=== PATIENT | male | born 1955 | race Caucasian/White ===

== ENCOUNTER 2019-05-29 06:09 | Outpatient (CLI) | payer OTHER | END 2019-05-29 06:10 | disposition short-term general hospital (02) | LOC: EMS 06:09 | PROVIDERS: ATTEND Surgery | DX: R07.9 Chest pain, unspecified (principal) | CPT/HCPCS: A0425; A0427 ==

== ENCOUNTER 2019-06-01 05:40 | Outpatient (CLI) | payer OTHER | END 2019-06-01 05:41 | disposition short-term general hospital (02) | LOC: EMS 05:40 | PROVIDERS: ATTEND Surgery | DX: R41.0 Disorientation, unspecified (principal); R07.9 Chest pain, unspecified | CPT/HCPCS: A0425; A0427 ==

== ENCOUNTER 2019-06-04 02:39 | Outpatient (CLI) | payer OTHER | END 2019-06-04 02:40 | disposition short-term general hospital (02) | LOC: EMS 02:39 | PROVIDERS: ATTEND Surgery | DX: R07.9 Chest pain, unspecified (principal) | CPT/HCPCS: A0425; A0427 ==

== ENCOUNTER 2019-06-10 00:58 | Outpatient (CLI) | payer OTHER | END 2019-06-10 00:59 | disposition short-term general hospital (02) | LOC: EMS 00:58 | PROVIDERS: ATTEND Surgery | DX: R53.1 Weakness (principal); R42 Dizziness and giddiness | CPT/HCPCS: A0425; A0427 ==

== ENCOUNTER 2019-06-26 05:59 | Outpatient (CLI) | payer OTHER | END 2019-06-26 06:00 | disposition short-term general hospital (02) | LOC: EMS 05:59 | PROVIDERS: ATTEND Surgery | DX: R07.89 Other chest pain (principal); R06.02 Shortness of breath | CPT/HCPCS: A0425; A0427 ==

== ENCOUNTER 2019-09-08 22:31 | Outpatient (CLI) | payer OTHER | END 2019-09-08 22:32 | disposition critical access hospital (66) | LOC: EMS 22:31 | PROVIDERS: ATTEND Surgery | DX: R55 Syncope and collapse (principal); R51 Headache | CPT/HCPCS: A0425; A0427 ==

== ENCOUNTER 2019-09-08 22:57 | Emergency (ER) | payer OTHER ==
--- NOTE | 2019-09-08 23:04 | ED Physician Documentation ---
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 He noticed it today when he got up and was walking across the room. He states he felt his legs weak and mostly on the left without the arms being weak per se. He felt lightheaded. Family members apparently where there and helped him down. EMS reports they did not say he had complete loss of consciousness. He is having a headache but did not have apparent injury to the head. He denied headache preceding the episode. He is still having some headache and a feeling of lightheadedness. He denies vertigo. He denies any feeling of weakness in his arms or legs right now.). No: Headache, Chest pain, Abdominal pain, Nausea / vomiting Associated symptoms: Headache (after the event). No: Seizure, Incontinant of urine, Chest pain, Nausea / vomiting, Abdominal pain Contributing factors: Just stood up. No: Recent med change (He denies any recent medication changes. Has lost changes were with a stent placement for chest pain in June 15, 2019 done at [facility]. He states he has been on the same medications though did have an ER visit in June to schedule as well. The records do not reflect any medication change at that time.), Decreased PO intake Injury occurred: No: Fell, Head injury Similar symptoms before: No diagnosis (He states he has been having postural lightheadedness episodically for the last couple of weeks occurring 3 or 4 times a week. Today was the first near syncopal episode.) Recently seen: Not recently seen Review of Systems Constitutional: denies: Fever, Chills Nose: denies: Rhinorrhea / runny nose, Congestion Throat: denies: Sore throat Cardiac: denies: Chest pain / pressure, Palpitations Respiratory: denies: Dyspnea, Cough GI: denies: Abdominal Pain, Nausea, Vomiting, Diarrhea, Bloody / black stool Neurologic: reports: Generalized weakness, Near syncope, Headache (just with the near syncope this evening). denies: Head injury Immunocompromised: denies: Immunocompromised PD PAST MEDICAL HISTORY - Past Medical History Cardiovascular: Hypertension, Coronary artery disease, [place] Respiratory: None Neuro: CVA Endocrine/Autoimmune: Type 2 diabetes GI: None : None - Present Medications Home Medications: Ambulatory Orders Medication Instructions Recorded Confirmed Atorvastatin [Lipitor] 40 mg PO 09/08/19 Bupropion HCl [Bupropion Xl] 150 mg PO 09/09/19 Citalopram [CeleXA] 40 mg PO DAILY 09/09/19 09/09/19 Gabapentin 300 mg PO 09/09/19 Insulin Aspart [Insulin Aspart 100 unit SQ 09/09/19 Flexpen] Insulin Glargine [Lantus Solostar] 0 unit 09/09/19 Levothyroxine [Synthroid] 50 mcg PO QDAC 09/09/19 09/09/19 Lisinopril [Zestril] 2.5 mg PO 09/09/19 Meclizine [Antivert] 25 mg PO Q6H 09/09/19 09/09/19 Metoprolol Tartrate 25 mg PO BID 09/09/19 09/09/19 Omeprazole 20 mg PO 09/09/19 - Allergies Allergies/Adverse Reactions: Allergies Allergy/AdvReac Type Severity Reaction Status Date / Time No Known Drug Allergies Allergy Verified 09/08/19 23:25 PD ED PE NORMAL - Vitals Vital signs reviewed: Yes (BP initially low but improving with IV fluid bolus) - General General: Alert and oriented X 3, No acute distress, Well developed/nourished - HEENT HEENT: Pharynx benign - Neck Neck: Supple, no meningeal sign, No adenopathy - Cardiac Cardiac: RRR, No murmur - Respiratory Respiratory: Clear bilaterally - Abdomen Abdomen: Soft, Non tender, Non distended - Derm Derm: Normal color, Warm and dry - Extremities Extremities: No deformity, No tenderness to palpate, Normal ROM s pain, No edema, No calf tenderness / cord - Neuro Neuro: Alert and oriented X 3, No motor deficit, Normal speech Eye Opening: Spontaneous Motor: Obeys Commands Verbal: Oriented GCS Score: 15 Results - Vitals Vitals: Vital Signs - 24 hr 09/08/19 09/09/19 09/09/19 23:03 01:56 02:00 Temperature 36.7 C Heart Rate 71 62 63 Heart Rate [ Sitting] Heart Rate [ Standing] Heart Rate [ Supine] Respiratory 18 15 18 Rate Blood Pressure 99/63 106/62 116/64 Blood Pressure [Sitting] Blood Pressure [Standing] Blood Pressure [Supine] O2 Saturation 95 93 94 09/09/19 09/09/19 03:30 04:05 Temperature Heart Rate 70 Heart Rate [ 70 Sitting] Heart Rate [ 70 Standing] Heart Rate [ 69 Supine] Respiratory 16 Rate Blood Pressure 112/70 Blood Pressure 111/67 [Sitting] Blood Pressure 107/68 [Standing] Blood Pressure 108/57 L [Supine] O2 Saturation 97 Oxygen O2 Source Room air - EKG (time done) 23:01 Rate: Rate (enter#) (67) Rhythm: NSR [place]: Normal Intervals: Normal NE QRS: Normal Ischemia: Normal ST segments. No: ST elevation c/w ischemia, ST depression Compare to prior EKG: Unchanged from prior EKG - Labs Labs: Laboratory Tests 09/09/19 09/09/19 09/09/19 00:47 00:47 00:47 WBC 8.9 RBC 3.97 L Hgb 11.9 L Hct 36.0 L MCV 90.7 MCH 30.0 MCHC 33.1 RDW 14.4 Plt Count 200 MPV 8.4 Neut # (Auto) 5.8 Lymph # (Auto) 2.1 [place] # (Auto) 0.8 Eos # (Auto) 0.1 Baso # (Auto) 0.0 Absolute Nucleated RBC 0.00 Nucleated RBC % 0.0 Sodium 137 Potassium 3.9 Chloride 104 Carbon Dioxide 23 Anion Gap 10.0 BUN 16 Creatinine 1.4 H Estimated GFR (MDRD) 51 L Glucose 102 H Lactic Acid Calcium 8.3 L Magnesium 1.6 L Total Bilirubin 0.8 AST 21 ALT 20 Alkaline Phosphatase 64 Troponin I High Sens 5.9 B-Natriuretic Peptide Total Protein 6.7 Albumin 3.4 Globulin 3.3 Albumin/Globulin Ratio 1.0 Lipase 25 09/09/19 09/09/19 00:47 01:20 WBC RBC Hgb Hct MCV MCH MCHC RDW Plt Count MPV Neut # (Auto) Lymph # (Auto) [place] # (Auto) Eos # (Auto) Baso # (Auto) Absolute Nucleated RBC Nucleated RBC % Sodium Potassium Chloride Carbon Dioxide Anion Gap BUN Creatinine Estimated GFR (MDRD) Glucose Lactic Acid 0.7 Calcium Magnesium Total Bilirubin AST ALT Alkaline Phosphatase Troponin I High Sens B-Natriuretic Peptide 110 H Total Protein Albumin Globulin Albumin/Globulin Ratio Lipase - Rads (name of study) head CT Radiology: Prelim report reviewed (No ICH), See rad report chest xray Radiology: Prelim report reviewed (patchy peripheral airspace disease c/w viral pneumonia in the right clinical setting), See rad report PD MEDICAL DECISION MAKING - ED course Complexity details: reviewed old records (from [facility] from 06/15/19), reviewed results, re-evaluated patient (Blood pressures improved with IV fluids. He remained stable otherwise. Heart rate is consistent on telemetry. He is subsequently feeling okay with standing up and is not orthostatic at this time though his still relatively low on blood pressure. He states his normal is 1 20-1 30. I will have him decrease his medication. He is only on very low-dose of lisinopril and only 25 twice a day of metoprolol. Otherwise his Imdur is 60 mg so we can decrease that to 30 daily. Have him follow-up with his primary care and cardiology this coming week regarding improved symptoms and any other medication adjustments), considered differential (Blood pressure is low without any obvious acute infection or dehydration or change in medicines. We will give some IV fluids and see if that helps. Check for signs of heart dysfunction with BNP or troponin. Chest x-ray to be obtained. He is having some headache subsequent to the event and does take Plavix so we will get a CT scan to ensure no bleeding from inapparent injury with the fainting. Check labs for metabolic and blood count as well), d/w patient Departure - Departure Disposition: 01 Home, Self Care Clinical Impression: Transient hypotension, Near syncope Headache Qualifiers: Headache type: unspecified Headache chronicity pattern: acute headache Intractability: not intractable Qualified Code(s): R51 - Headache Condition: Stable Record reviewed to determine appropriate education?: Yes Instructions: ED Near Syncope Unkn Comments: Your blood tests and EKG x-ray and CT of the head are normal in appearance. Your blood pressure was low initially and improved with some fluids. There is no signs of infectious cause or other metabolic cause at this time. I presume its a combination of hydration and medication. At this point make sure you stay well-hydrated and I would suggest decreasing your Imdur from 60 mg a day to 30 mg a day. Continue your metoprolol and lisinopril. These are at low doses already. Continue your other usual medicines. Contact your primary care and multimedia educational specialist this coming week on Wednesday and discuss the medication changes we did and see if they want to change in any other way. Discharge Date/Time: 09/09/19 04:50
[2019-09-08] MEDS ORDERED: MORPHINE 2 MG/ML CARPUJECT IVP STA (23:55)
[2019-09-08] MEDS ORDERED: SODIUM CHLORIDE 0.9% 1,000 ML IV STA (23:56)
--- NOTE | 2019-09-09 00:42 | CT Report ---
Reason: headache and near syncope Procedure Date: 09/09/2019 Accession Number: [id number] / [id number] Procedure: CT - HEAD WO CPT Code: Final Report FULL RESULT: EXAM: CT HEAD EXAM DATE: 09/09/2019 12:17 AM. CLINICAL HISTORY: Headache and near syncope. COMPARISON: None. TECHNIQUE: Multiaxial CT images were obtained from the foramen magnum to the vertex. Reformats: Sagittal and coronal. IV contrast: None. In accordance with CT protocol optimization, one or more of the following dose reduction techniques were utilized for this exam: automated exposure control, adjustment of mA and/or KV based on patient size, or use of iterative reconstructive technique. FINDINGS: Parenchyma: No intraparenchymal hemorrhage. No evidence of mass, midline shift, or CT findings of infarction. Reich-white differentiation is distinct. Extraaxial Spaces: Normal for age. No subdural or epidural collections identified. Ventricles: Normal in size and position. Sinuses and Orbits: Imaged paranasal sinuses, orbits, and mastoids show no significant abnormality. Bones: No evidence of fracture or calvarial defect. Other: None. IMPRESSION: Normal head CT. RADIA
--- NOTE | 2019-09-09 00:46 | XRAY Report ---
Reason: near syncope Procedure Date: 09/09/2019 Accession Number: [id number] / [id number] Procedure: XR - Chest 1 View X-Ray CPT Code: 24262 Final Report FULL RESULT: EXAM: CHEST RADIOGRAPHY EXAM DATE: 09/09/2019 12:22 AM. CLINICAL HISTORY: Near syncope. COMPARISON: None. TECHNIQUE: 1 view. FINDINGS: Lungs/Pleura: Patchy peripheral infiltrates, suggestive of viral or atypical infection in the appropriate clinical scenario. No effusion or pneumothorax. Mediastinum: Within exam limitations, the cardiomediastinal contour is normal. Other: None. IMPRESSION: Patchy peripheral airspace disease, suggestive of viral or atypical infectious process in the appropriate clinical scenario. RADIA
[2019-09-09 00:57] LABS: BASOPHILS % (AUTO) 0.1 %; EOSINOPHILS # (AUTO) 0.1 10^3/uL (0.0-0.7); EOSINOPHILS % (AUTO) 1.5 %; HGB - HEMOGLOBIN 11.9 g/dL (14.0-18.0); LYMPHOCYTES # (AUTO) 2.1 10^3/uL (1.5-3.5); LYMPHOCYTES % (AUTO) 23.8 %; MEAN CORPUSCULAR HGB CONC 33.1 g/dL (32.0-36.0); MEAN CORPUSCULAR VOLUME 90.7 fL (80.0-94.0); MEAN PLATELET VOLUME 8.4 fL (7.4-11.4); MONOCYTES # (AUTO) 0.8 10^3/uL (0.0-1.0); MONOCYTES % (AUTO) 8.9 %; NEUTROPHILS # (AUTO) 5.8 10^3/uL (1.5-6.6); NEUTROPHILS % (AUTO) 65.1 %; PLT - PLATELET COUNT 200 10^3/uL (130-450); RED BLOOD COUNT 3.97 10^6/uL (4.70-6.10); RED CELL DISTRIBUTION WIDTH 14.4 % (12.0-15.0); WHITE BLOOD COUNT 8.9 x10^3/uL (4.8-10.8)
[2019-09-09 01:11] LABS: ALBUMIN 3.4 g/dL (3.2-5.5); BILIRUBIN,TOTAL 0.8 mg/dL (0.2-1.0); CALCIUM 8.3 mg/dL (8.5-10.3); CREATININE 1.4 mg/dL (0.6-1.2); MAGNESIUM 1.6 mg/dL (1.7-2.8); TOTAL PROTEIN 6.7 g/dL (6.7-8.2)
[2019-09-09] MEDS ORDERED: KETOROLAC 15 MG/ML VIAL IVP STA (01:11)
[2019-09-09] MEDS ORDERED: ACETAMINOPHEN 1,000 MG/100 ML 100 ML IV ONE (01:11)
[2019-09-09] MEDS ORDERED: SODIUM CHLORIDE 0.9% 1,000 ML IV STA (01:11)
[2019-09-09] MEDS ORDERED: SODIUM CHLORIDE 0.9% 500 ML IV STA (02:41)
[2019-09-09 04:05] VITALS: BP 112/70
== END 2019-09-09 04:50 | disposition home or self-care (01) ==
LOC: EDUNIT# → ED 22:57
DX: I95.9 Hypotension, unspecified (principal); R55 Syncope and collapse; R51 Headache; E11.9 Type 2 diabetes mellitus without complications; Z79.4 Long term (current) use of insulin; I10 Essential (primary) hypertension; Z86.73 Personal history of transient ischemic attack (TIA), and cerebral infarction without residual deficits; Z79.02 Long term (current) use of antithrombotics/antiplatelets
CPT/HCPCS: 36415; 70450; 71045; 80053; 83605; 83690; 83735; 83880; 84484; 85025; 93005; 96361; 96365; 96375; 99284; J0131

== ENCOUNTER 2019-10-17 12:18 | Outpatient (CLI) | payer OTHER | END 2019-10-17 12:19 | disposition short-term general hospital (02) | LOC: EMS 12:18 | PROVIDERS: ATTEND Surgery | DX: R07.9 Chest pain, unspecified (principal); R06.02 Shortness of breath | CPT/HCPCS: A0425; A0427 ==

== ENCOUNTER 2020-01-09 03:13 | Outpatient (CLI) | payer OTHER | END 2020-01-09 03:14 | disposition short-term general hospital (02) | LOC: EMS 03:13 | PROVIDERS: ATTEND Surgery | DX: R07.89 Other chest pain (principal); R11.0 Nausea | CPT/HCPCS: A0425; A0427 ==

== ENCOUNTER 2020-01-10 23:03 | Outpatient (CLI) | payer MEDICARE | END 2020-01-10 23:04 | disposition short-term general hospital (02) | LOC: EMS 23:03 | PROVIDERS: ATTEND Surgery | DX: R07.89 Other chest pain (principal) | CPT/HCPCS: A0425; A0427 ==

== ENCOUNTER → 2020-02-02 | Outpatient (CLI) | payer MEDICARE | END | disposition short-term general hospital (02) | LOC: EMS 23:33 | PROVIDERS: ATTEND Surgery | DX: R51.9 Headache, unspecified (principal); R53.1 Weakness; R55 Syncope and collapse; R11.0 Nausea | CPT/HCPCS: A0425; A0429 ==

== ENCOUNTER 2020-04-19 09:48 | Outpatient (CLI) | payer MEDICARE | END 2020-04-19 09:49 | disposition short-term general hospital (02) | LOC: EMS 09:48 | PROVIDERS: ATTEND Surgery | DX: R07.9 Chest pain, unspecified (principal) | CPT/HCPCS: A0425; A0427 ==

== ENCOUNTER 2020-08-11 23:15 | Outpatient (CLI) | payer OTHER | END 2020-08-11 23:16 | disposition short-term general hospital (02) | LOC: EMS 23:15 | DX: K30 Functional dyspepsia (principal); R11.2 Nausea with vomiting, unspecified; R07.9 Chest pain, unspecified | CPT/HCPCS: A0425; A0427 ==

== ENCOUNTER 2020-09-13 21:03 | Outpatient (CLI) | payer OTHER, MEDICARE | END 2020-09-13 21:04 | disposition short-term general hospital (02) | LOC: EMS 21:03 | DX: R06.00 Dyspnea, unspecified (principal) | CPT/HCPCS: A0425; A0429 ==

== ENCOUNTER 2020-09-24 03:14 | Outpatient (CLI) | payer MEDICARE | END 2020-09-24 03:15 | disposition critical access hospital (66) | LOC: EMS 03:14 | DX: R07.9 Chest pain, unspecified (principal); R06.02 Shortness of breath | CPT/HCPCS: A0425; A0429 ==

== ENCOUNTER 2020-10-21 06:45 | Outpatient (CLI) | payer MEDICARE | END 2020-10-21 06:46 | disposition short-term general hospital (02) | LOC: EMS 06:45 | DX: R10.11 Right upper quadrant pain (principal); R11.2 Nausea with vomiting, unspecified; R06.02 Shortness of breath | CPT/HCPCS: A0425; A0429 ==

== ENCOUNTER 2020-12-27 04:46 | Outpatient (CLI) | payer MEDICARE | END 2020-12-27 04:47 | disposition short-term general hospital (02) | LOC: EMS 04:46 | DX: R42 Dizziness and giddiness (principal); I95.9 Hypotension, unspecified | CPT/HCPCS: A0425; A0429 ==

== ENCOUNTER 2021-02-07 22:20 | Outpatient (CLI) | payer MEDICARE | END 2021-02-07 22:21 | disposition short-term general hospital (02) | LOC: EMS 22:20 | PROVIDERS: ATTEND Emergency Medicine | DX: R40.3 Persistent vegetative state (principal); M25.551 Pain in right hip | CPT/HCPCS: A0425; A0427 ==

== ENCOUNTER 2021-03-07 20:10 | Outpatient (CLI) | payer MEDICARE | END 2021-03-07 20:11 | disposition short-term general hospital (02) | LOC: EMS 20:10 | DX: Z04.3 Encounter for examination and observation following other accident (principal); M54.6 Pain in thoracic spine | CPT/HCPCS: A0425; A0429 ==

== ENCOUNTER 2021-03-19 10:34 | Outpatient (CLI) | payer MEDICARE | END 2021-03-19 10:35 | disposition EMS.NT | LOC: EMS 10:34 | DX: Z03.89 Encounter for observation for other suspected diseases and conditions ruled out (principal) ==

== ENCOUNTER 2021-03-19 15:35 | Outpatient (CLI) | payer OTHER | END 2021-03-19 15:36 | disposition short-term general hospital (02) | LOC: EMS 15:35 | DX: Z04.3 Encounter for examination and observation following other accident (principal); R26.81 Unsteadiness on feet; R07.9 Chest pain, unspecified; R44.3 Hallucinations, unspecified | CPT/HCPCS: A0425; A0427 ==

== ENCOUNTER 2021-04-02 04:13 | Outpatient (CLI) | payer MEDICARE, OTHER | END 2021-04-02 04:14 | disposition EMS.NT | LOC: EMS 04:13 | DX: R26.81 Unsteadiness on feet (principal); R25.1 Tremor, unspecified; Z91.81 History of falling ==

== ENCOUNTER 2021-04-02 13:44 | Outpatient (CLI) | payer MEDICARE | END 2021-04-02 13:45 | disposition critical access hospital (66) | LOC: EMS 13:44 | DX: R53.1 Weakness (principal); R42 Dizziness and giddiness | CPT/HCPCS: A0425; A0429 ==

== ENCOUNTER 2021-04-02 14:09 | Emergency (ER) | payer MEDICARE, OTHER ==
--- NOTE | 2021-04-02 14:13 | ED Physician Documentation ---
PD HPI Fall - Stated complaint Stated Complaint: FALL - History obtained from History obtained from: Patient, EMS - History of Present Illness Mechanism of injury: Lost balance, Other (feeling of weakness in legs.) Fall distance: Standing position Where injury occurred: Home Timing - onset: Today (he states he was in [facility] for 2 weeks due to weakness, balance problems, and tremor. Dx with Leuwe Body Dementia and Parkinsons. He states they tried placement at assisted living but unable. Discharged him to home with walker/home health aides. He states discharged yesterday. falls today.) Injury(ies) location: Other (he denies injuries with falls.). No: Head, Neck, Chest, Abdomen Associated symptoms: Weakness, Other (shakiness/tremors.). No: LOC, AMS, Paresthesias Worsens with: Movement Similar symptoms before: Has not had sx before Review of Systems Constitutional: denies: Fever, Chills Nose: denies: Rhinorrhea / runny nose, Congestion Throat: denies: Sore throat Cardiac: denies: Chest pain / pressure, Palpitations Respiratory: denies: Dyspnea, Cough GI: denies: Abdominal Pain, Nausea, Vomiting, Diarrhea Neurologic: reports: Generalized weakness. denies: Focal weakness, Near syncope, Headache PD PAST MEDICAL HISTORY - Past Medical History Cardiovascular: Hypertension, Coronary artery disease, [place] Respiratory: None Neuro: Dementia, CVA, Parkinson's Endocrine/Autoimmune: Type 2 diabetes GI: None : None - Present Medications Home Medications: Ambulatory Orders Medication Instructions Recorded Confirmed Atorvastatin [Lipitor] 40 mg PO 09/08/19 Citalopram [CeleXA] 40 mg PO DAILY 09/09/19 09/09/19 Gabapentin 300 mg PO 09/09/19 Insulin Aspart [Insulin Aspart 100 unit SQ 09/09/19 Flexpen] Insulin Glargine [Lantus Solostar] 0 unit 09/09/19 Levothyroxine [Synthroid] 50 mcg PO QDAC 09/09/19 09/09/19 Lisinopril [Zestril] 2.5 mg PO 09/09/19 Meclizine [Antivert] 25 mg PO Q6H 09/09/19 09/09/19 Metoprolol Tartrate 25 mg PO BID 09/09/19 09/09/19 Omeprazole 20 mg PO 09/09/19 buPROPion HCL [Bupropion Xl] 150 mg PO 09/09/19 - Allergies Allergies/Adverse Reactions: Allergies Allergy/AdvReac Type Severity Reaction Status Date / Time morphine Allergy Itching Verified 04/02/21 14:19 PD ED PE NORMAL - Vitals Vital signs reviewed: Yes - General General: Alert and oriented X 3, Well developed/nourished - HEENT HEENT: Atraumatic, Moist mucous membranes - Neck Neck: Supple, no meningeal sign, No adenopathy - Cardiac Cardiac: RRR, No murmur - Respiratory Respiratory: Clear bilaterally - Abdomen Abdomen: Soft, Non tender - Derm Derm: Normal color, Warm and dry - Extremities Extremities: Normal ROM s pain, No edema, No calf tenderness / cord - Neuro Neuro: Alert and oriented X 3, No motor deficit (some mild tremor with holding arms up.), No sensory deficit, Normal speech Results - Vitals Vitals: Vital Signs - 24 hr 04/02/21 04/02/21 04/02/21 14:19 14:51 15:28 Temperature 36.2 C L Heart Rate 76 78 Heart Rate [ 82 Sitting] Heart Rate [ 84 Standing] Heart Rate [ 78 Supine] Respiratory 14 17 Rate Blood Pressure 152/76 H Blood Pressure 126/82 H [Sitting] Blood Pressure 133/56 H [Standing] Blood Pressure 149/75 H [Supine] O2 Saturation 100 100 04/02/21 04/02/21 17:00 17:42 Temperature Heart Rate 90 89 Heart Rate [ Sitting] Heart Rate [ Standing] Heart Rate [ Supine] Respiratory 20 Rate Blood Pressure 172/72 H 177/80 H Blood Pressure [Sitting] Blood Pressure [Standing] Blood Pressure [Supine] O2 Saturation 98 97 Oxygen O2 Source Room air - Labs Labs: Laboratory Tests 04/02/21 04/02/21 04/02/21 15:05 15:05 15:05 WBC 9.3 RBC 4.15 L Hgb 13.3 L Hct 38.2 L MCV 92.0 MCH 32.0 H MCHC 34.8 RDW 13.0 Plt Count 187 MPV 8.9 Neut # (Auto) 7.0 H Lymph # (Auto) 1.3 L [place] # (Auto) 0.7 Eos # (Auto) 0.3 Baso # (Auto) 0.0 Absolute Nucleated RBC 0.00 Nucleated RBC % 0.0 Sodium 131 L Potassium 4.0 Chloride 98 L Carbon Dioxide 24 Anion Gap 9.0 BUN 36 H Creatinine 1.0 Estimated GFR (MDRD) 74 L Glucose 228 H Calcium 9.0 Magnesium 1.6 L Total Bilirubin 0.8 AST 40 ALT 41 Alkaline Phosphatase 80 Total Protein 7.2 Albumin 3.8 Globulin 3.4 Albumin/Globulin Ratio 1.1 Lipase 23 TSH 1.28 Ethyl Alcohol < 5.0 PD MEDICAL DECISION MAKING - ED course Complexity details: reviewed results, considered differential (discharged yesterday from [facility] for same symptoms with labs/MRI/eval. Will get discharge summary. ), d/w patient, d/w applications development consultant (Social WOrk to [facility] discharge plan and patient home resources. She was able to arrange that patient son would pick him up in AM, Home Health aides were already in place daily. Has walker. Friends could help him as well. Would need to work on assisted living with PMD/family. ) ED course: plan was for patient to stay overnight until son could pick him up. But with patient finding he would not be in room with a TV, then he opted to call his neighbor to help him into house, and called taxi to get him from ER. Departure - Departure Disposition: 01 Home, Self Care Clinical Impression: Unsteady gait when walking Condition: Stable Record reviewed to determine appropriate education?: Yes Comments: Well-hydrated and continue usual medications as directed by your discharge information from [facility] yesterday. Have your primary care provider submit orders for home health nursing and physical therapy. Continue working with your event sales assistant. Our health and social care teacher have provided you with some numbers and resources. I understand your son will help you as best they can attempt time or 2 a day. It sounds like you had home health aides set up on the discharge planning from [facility]. Continue with that. Obtain a urinal to not have to go far to the bathroom etc. Discharge Date/Time: 04/02/21 18:16
[2021-04-02] MEDS ORDERED: SODIUM CHLORIDE 0.9% 1,000 ML IV STA (14:58)
[2021-04-02 15:11] LABS: BASOPHILS % (AUTO) 0.1 %; EOSINOPHILS # (AUTO) 0.3 10^3/uL (0.0-0.7); EOSINOPHILS % (AUTO) 3.2 %; HCT - HEMATOCRIT 38.2 % (42.0-52.0); HGB - HEMOGLOBIN 13.3 g/dL (14.0-18.0); LYMPHOCYTES # (AUTO) 1.3 10^3/uL (1.5-3.5); LYMPHOCYTES % (AUTO) 14.1 %; MEAN CORPUSCULAR HGB CONC 34.8 g/dL (32.0-36.0); MEAN PLATELET VOLUME 8.9 fL (7.4-11.4); MONOCYTES # (AUTO) 0.7 10^3/uL (0.0-1.0); MONOCYTES % (AUTO) 7.5 %; NEUTROPHILS % (AUTO) 74.7 %; PLT - PLATELET COUNT 187 10^3/uL (130-450); RED BLOOD COUNT 4.15 10^6/uL (4.70-6.10); WHITE BLOOD COUNT 9.3 x10^3/uL (4.8-10.8)
[2021-04-02 15:28] LABS: ALBUMIN 3.8 g/dL (3.2-5.5); ALBUMIN/GLOBULIN RATIO 1.1 (1.0-2.2); ALKALINE PHOSPHATASE 80 IU/L (42-121); ALT ALANINE AMINOTRANSFERASE 41 IU/L (10-60); AST ASPARTATE AMINOTRANSFERASE 40 IU/L (10-42); BILIRUBIN,TOTAL 0.8 mg/dL (0.2-1.0); BUN - BLOOD UREA NITROGEN 36 mg/dL (6-20); CARBON DIOXIDE - CO2 24 mmol/L (21-32); CHLORIDE 98 mmol/L (101-111); ETOH - ETHANOL < 5.0 mg/dL; GFR - MDRD 74 (>89); GLUCOSE 228 mg/dL (70-100); LIPASE 23 U/L (22-51); MAGNESIUM 1.6 mg/dL (1.7-2.8); SODIUM 131 mmol/L (135-145); TOTAL PROTEIN 7.2 g/dL (6.7-8.2)
[2021-04-02 17:42] VITALS: BP 177/80
== END 2021-04-02 18:16 | disposition home or self-care (01) ==
LOC: EDUNIT# → ED 14:09
DX: R26.81 Unsteadiness on feet (principal); G20 Parkinson's disease; F02.80 Dementia in other diseases classified elsewhere, unspecified severity, without behavioral disturbance, psychotic disturbance, mood disturbance, and anxiety; E11.9 Type 2 diabetes mellitus without complications; Z79.4 Long term (current) use of insulin; I10 Essential (primary) hypertension
CPT/HCPCS: 36415; 80053; 83690; 83735; 84443; 85025; 99283; G0480; 80320

== ENCOUNTER 2021-04-15 19:21 | Outpatient (CLI) | payer MEDICARE | END 2021-04-15 19:22 | disposition EMS.NT | LOC: EMS 19:21 | DX: Z03.89 Encounter for observation for other suspected diseases and conditions ruled out (principal) ==

== ENCOUNTER 2021-04-20 20:03 | Outpatient (CLI) | payer MEDICARE | END 2021-04-20 20:04 | disposition EMS.NT | LOC: EMS 20:03 | DX: R53.1 Weakness (principal) ==

== ENCOUNTER 2021-04-20 23:39 | Outpatient (CLI) | payer MEDICARE | END 2021-04-20 23:40 | disposition critical access hospital (66) | LOC: EMS 23:39 | DX: R29.6 Repeated falls (principal); R44.3 Hallucinations, unspecified | CPT/HCPCS: A0425; A0429 ==

== ENCOUNTER 2021-04-21 00:06 | Emergency (ER) | payer MEDICARE ==
[2021-04-21 01:27] LABS: INR 1.2 (0.8-1.2); PT - PROTHROMBIN TIME 13.3 secs (9.9-12.6)
[2021-04-21] MEDS: ACETAMINOPHEN 325 MG TABLET PO STA (01:42)
[2021-04-21] MEDS: TETANUS/DIPHTHERIA/PERTUSSIS 0.5 ML SYRINGE IM ONE (01:43)
--- NOTE | 2021-04-21 02:04 | CT Report ---
PROCEDURE: HEAD WO INDICATIONS: Head trauma, mod-severe TECHNIQUE: Noncontrast 4.5 mm thick angled axial sections acquired from the foramen magnum to the vertex. For r adiation dose reduction, the following was used: automated exposure control, adjustment of mA and/or kV according to patient size. COMPARISON: September 09, 2019. FINDINGS: BRAIN PARENCHYMA: Normal parenchymal density. No acute cortical based (large territory) infarction, i ntracranial hemorrhage, mass or mass effect, or abnormal fluid collection. The density in the larger dural venous sinuses is grossly normal. VENTRICLES: Normal in size, shape, and position. BONES/SINUSES: The skull base and calvarium demonstrate no acute abnormality. The paranasal sinuses a nd mastoid air cells are well aerated. IMPRESSION: 1.No acute intracranial abnormality. Reviewed by: Juancarlos Urbina MD on 04/21/2021 2:03 AM [facility] Approved by: Juancarlos Urbina MD on 04/21/2021 2:03 AM PST Station ID: [id number]
--- NOTE | 2021-04-21 02:08 | CT Report ---
PROCEDURE: CERVICAL SPINE WO INDICATIONS: Neck trauma, midline tenderness TECHNIQUE: Noncontrast 3 mm thick sections acquired from the skull base to the T4 level. Sagittal and coronal r eformats were then constructed. For radiation dose reduction, the following was used: automated exp osure control, adjustment of mA and/or kV according to patient size. COMPARISON: None. FINDINGS: C-SPINE: No acute, displaced fracture or retropulsion. Minimal grade 1 anterolisthesis at C2-3. The v ertebral body heights are maintained. Mild disc height loss, uncovertebral/facet arthrosis, and poste rior disc osteophyte complexes, most prominent at C3-6. SOFT TISSUES: No prevertebral soft tissue thickening. IMPRESSION: 1.No acute osseous abnormality of the cervical spine. Reviewed by: Juancarlos Urbina MD on 04/21/2021 2:06 AM [facility] Approved by: Juancarlos Urbina MD on 04/21/2021 2:06 AM [facility] Station ID: [id number]
--- NOTE | 2021-04-21 02:09 | XRAY Report ---
PROCEDURE: Knee 2 View LT INDICATIONS: knee pain s/p fall TECHNIQUE: 3 views of the left knee(s) were acquired. COMPARISON: None. FINDINGS: BONES/JOINT: No acute, displaced fracture or dislocation. No substantial suprapatellar joint effusio n. SOFT TISSUES: No significant abnormality. Vascular calcifications are seen. IMPRESSION: 1.No acute osseous abnormality. Reviewed by: Juancarlos Urbina MD on 04/21/2021 2:07 AM PST Approved by: Juancarlos Urbina MD on 04/21/2021 2:07 AM PST Station ID: [id number]
--- NOTE | 2021-04-21 02:47 | ED Physician Documentation ---
History of Present Illness - Stated complaint Stated Complaint: GLF X 2, AMS, PARKINSONS - Chief complaint Chief Complaint: Trauma Ext - History obtained from History obtained from: Patient - Additonal information Additional information: 66yM with pmh parkinsons disease with frequent hallucinations, p/w worsening hallucinations last night and multiple falls, most recent at 2300 with +HT but no loc. also c/o L knee abrasion. patient is on plavix for cad therefore modified trauma called on arrival. patient AOX4 in the ED. currently denies hallucinations. states this is c/w his parkinson's disease. patient is normally ambulatory with walker/scooter at home with son and living in the home with him. Review of Systems Ten Systems: 10 systems reviewed and negative Constitutional: denies: Fever, Chills Musculoskeletal: reports: Extremity pain, Joint pain (L knee pain) Neurologic: reports: Generalized weakness, Head injury. denies: LOC Psychiatric: reports: Hallucinations. denies: Suicidal, Homicidal PD PAST MEDICAL HISTORY - Past Medical History Cardiovascular: Hypertension, Coronary artery disease, [place] Respiratory: None Neuro: Dementia, CVA, Parkinson's Endocrine/Autoimmune: Type 2 diabetes GI: None : None HEENT: None Psych: None Musculoskeletal: None Derm: None - Past Surgical History Past Surgical History: No - Present Medications Home Medications: Ambulatory Orders Medication Instructions Recorded Confirmed Atorvastatin [Lipitor] 40 mg PO 09/08/19 Citalopram [CeleXA] 40 mg PO DAILY 09/09/19 09/09/19 Gabapentin 300 mg PO 09/09/19 Insulin Aspart [Insulin Aspart 100 unit SQ 09/09/19 Flexpen] Insulin Glargine [Lantus Solostar] 0 unit 09/09/19 Levothyroxine [Synthroid] 50 mcg PO QDAC 09/09/19 09/09/19 Lisinopril [Zestril] 2.5 mg PO 09/09/19 Meclizine [Antivert] 25 mg PO Q6H 09/09/19 09/09/19 Metoprolol Tartrate 25 mg PO BID 09/09/19 09/09/19 Omeprazole 20 mg PO 09/09/19 buPROPion HCL [Bupropion Xl] 150 mg PO 09/09/19 - Allergies Allergies/Adverse Reactions: Allergies Allergy/AdvReac Type Severity Reaction Status Date / Time adhesive tape Allergy Unknown Verified 04/21/21 00:19 morphine Allergy Itching Verified 04/21/21 00:19 - Social History Does the pt smoke?: No Smoking Status: Never smoker Does the pt drink ETOH?: No Does the pt have substance abuse?: No - Immunizations Immunizations are current?: Yes - POLST Patient has POLST: No PD ED PE NORMAL - Vitals Vital signs reviewed: Yes - General General: Alert and oriented X 3, No acute distress, Well developed/nourished - HEENT HEENT: Atraumatic, PERRL, EOMI - Neck Neck: Supple, no meningeal sign - Cardiac Cardiac: RRR - Respiratory Respiratory: No respiratory distress, Clear bilaterally - Abdomen Abdomen: Non tender, Non distended - Derm Derm: Normal color, Other (abrasion to L knee) - Extremities Extremities: No deformity, Normal ROM s pain, Other (L knee nontender with valgus/varus stress or ROM. negative anterior drawer and jennie test) - Neuro Neuro: Alert and oriented X 3, director advanced 2-12 intact, No motor deficit, No sensory deficit, Normal speech - Psych Psych: Normal mood, Normal affect Results - Vitals Vitals: Vital Signs - 24 hr 04/21/21 04/21/21 04/21/21 00:00 03:09 04:00 Temperature 36.4 C L 36.1 C L Heart Rate 83 74 69 Respiratory 17 15 18 Rate Blood Pressure 159/86 H 140/80 H 141/74 H O2 Saturation 96 95 94 04/21/21 04/21/21 05:16 06:17 Temperature 36.3 C L Heart Rate 74 66 Respiratory 15 15 Rate Blood Pressure 156/76 H 163/87 H O2 Saturation 95 97 Oxygen O2 Source Room air - Labs Labs: Laboratory Tests 04/21/21 01:15 PT 13.3 H INR 1.2 PD MEDICAL DECISION MAKING - ED course ED course: 66yM with pmd parkinsons p/w multiple falls yesterday and increasing hallucinations and progressive weakness. traumatic workup negative. patient has an upcoming appointment Apr 28 with his PCP in [place]. Advised to keep appointment, consider inquiring about neuro referral, and also to look into getting additional home care assistance. in the meantime his son will need to help assist him. return precautions given. Departure - Departure Disposition: 01 Home, Self Care Clinical Impression: History of recent fall, Hallucinations, Parkinsons disease, Knee pain, Head injury Condition: Stable Instructions: ED Chronic Pain Management Comments: You were seen in the emergency department for evaluation after a fall. Your CT of your head and neck showed now traumatic injury and your knee xray showed no broken bones. you should follow up with your primary doctor this week for referral to neurology. Return to the ed if you have new or worsening symptoms or other concerns.
[2021-04-21 09:06] VITALS: BP 174/116
== END 2021-04-21 09:52 | disposition home or self-care (01) ==
LOC: EDBD → EDUNIT# → SUPCPDRO 00:06 → ED 00:06
DX: S09.90XA Unspecified injury of head, initial encounter (principal); S80.212A Abrasion, left knee, initial encounter; W19.XXXA Unspecified fall, initial encounter; F02.80 Dementia in other diseases classified elsewhere, unspecified severity, without behavioral disturbance, psychotic disturbance, mood disturbance, and anxiety; Z91.81 History of falling; I10 Essential (primary) hypertension; Z23 Encounter for immunization; Z79.01 Long term (current) use of anticoagulants; E11.9 Type 2 diabetes mellitus without complications; Z79.4 Long term (current) use of insulin
CPT/HCPCS: 36415; 70450; 72125; 73560; 85610; 90471; 90715; 99282; 99284; A9270

== ENCOUNTER 2021-05-02 21:40 | Outpatient (CLI) | payer MEDICARE | END 2021-05-02 21:41 | disposition short-term general hospital (02) | LOC: EMS 21:40 | DX: S09.90XA Unspecified injury of head, initial encounter (principal); Z79.01 Long term (current) use of anticoagulants; W19.XXXA Unspecified fall, initial encounter; Y92.009 Unspecified place in unspecified non-institutional (private) residence as the place of occurrence of the external cause; R53.1 Weakness; R41.0 Disorientation, unspecified | CPT/HCPCS: A0425; A0427 ==

== ENCOUNTER 2021-05-03 06:07 | Outpatient (CLI) | payer MEDICARE | END 2021-05-03 06:08 | disposition short-term general hospital (02) | LOC: EMS 06:07 | DX: S09.90XA Unspecified injury of head, initial encounter (principal); W18.39XA Other fall on same level, initial encounter; Y93.89 Activity, other specified; Y92.009 Unspecified place in unspecified non-institutional (private) residence as the place of occurrence of the external cause | CPT/HCPCS: A0425; A0429 ==

== ENCOUNTER 2021-05-24 15:04 | Outpatient (CLI) | payer MEDICARE | END 2021-05-24 15:05 | disposition short-term general hospital (02) | LOC: EMS 15:04 | DX: L08.9 Local infection of the skin and subcutaneous tissue, unspecified (principal) | CPT/HCPCS: A0425; A0429 ==

== ENCOUNTER 2021-06-10 16:51 | Outpatient (CLI) | payer MEDICARE | END 2021-06-10 16:52 | disposition EMS.NT | LOC: EMS 16:51 | DX: Z03.89 Encounter for observation for other suspected diseases and conditions ruled out (principal) ==

== ENCOUNTER 2021-06-28 06:08 | Outpatient (CLI) | payer MEDICARE, MEDICAID | END 2021-06-28 06:09 | disposition critical access hospital (66) | LOC: EMS 06:08 | DX: R42 Dizziness and giddiness (principal); R53.1 Weakness | CPT/HCPCS: A0425; A0427 ==

== ENCOUNTER 2021-06-28 06:25 | Emergency (ER) | payer MEDICARE, MEDICAID ==
--- NOTE | 2021-06-28 07:17 | ED Physician Documentation ---
PD HPI SYNCOPE - Stated complaint Stated Complaint: DIZZY - Chief complaint Chief Complaint: Neuro - History obtained from History obtained from: Patient, EMS - History of Present Illness Timing - onset: How many hours ago (And has felt generally lightheaded last night overnight with sitting up and again this morning when he tried to get up from bed. Called EMS. They noted his blood pressure to be low at 80s systolic. Normal heart rate.), Today Duration: Hours Preceding symptoms: Light headed, Generalized weakness. 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 denies: Dyspnea GI: denies: Abdominal Pain, Nausea, Vomiting, Diarrhea, Bloody / black stool Skin: denies: Rash, Lesions Musculoskeletal: denies: Extremity swelling Neurologic: reports: Generalized weakness, Near syncope. denies: Focal weakness, Numbness, Syncope, Altered mental status, Headache PD PAST MEDICAL HISTORY - Past Medical History Cardiovascular: Hypertension, Coronary artery disease, SC Respiratory: None Neuro: Dementia, CVA, Parkinson's Endocrine/Autoimmune: Type 2 diabetes GI: None : None HEENT: None Psych: None Musculoskeletal: None Derm: None - Past Surgical History Past Surgical History: No Ortho: Shoulder arthroplasty - Present Medications Home Medications: Ambulatory Orders Medication Instructions Recorded Confirmed Atorvastatin [Lipitor] 40 mg PO 09/08/19 Citalopram [CeleXA] 40 mg PO DAILY 09/09/19 09/09/19 Gabapentin 300 mg PO 09/09/19 Insulin Aspart [Insulin Aspart 100 unit SQ 09/09/19 Flexpen] Insulin Glargine [Lantus Solostar] 0 unit 09/09/19 Levothyroxine [Synthroid] 50 mcg PO QDAC 09/09/19 09/09/19 Lisinopril [Zestril] 2.5 mg PO 09/09/19 Meclizine [Antivert] 25 mg PO Q6H 09/09/19 09/09/19 Metoprolol Tartrate 25 mg PO BID 09/09/19 09/09/19 Omeprazole 20 mg PO 09/09/19 buPROPion HCL [Bupropion Xl] 150 mg PO 09/09/19 - Allergies Allergies/Adverse Reactions: Allergies Allergy/AdvReac Type Severity Reaction Status Date / Time adhesive tape Allergy Unknown Verified 06/28/21 06:37 morphine Allergy Itching Verified 06/28/21 06:37 - Social History Does the pt smoke?: No Smoking Status: Never smoker Does the pt drink ETOH?: No Does the pt have substance abuse?: No - Immunizations Immunizations are current?: Yes - POLST Patient has POLST: No PD ED PE NORMAL - Vitals Vital signs reviewed: Yes (Initial blood pressure improved from prehospital.) - General General: Alert and oriented X 3, No acute distress, Well developed/nourished - HEENT HEENT: Ears normal, Pharynx benign. No: Moist mucous membranes - Neck Neck: Supple, no meningeal sign, No adenopathy - Cardiac Cardiac: RRR, No murmur - Respiratory Respiratory: Clear bilaterally - Abdomen Abdomen: Soft, Non tender, Non distended - Male Male : Deferred - Rectal Rectal: Deferred - Back Back: No CVA TTP - Derm Derm: Normal color, Warm and dry - Extremities Extremities: No tenderness to palpate, Normal ROM s pain, No edema (compression socks on both legs. ), No calf tenderness / cord - Neuro Neuro: Alert and oriented X 3, director hris 2-12 intact, No motor deficit, No sensory deficit, Normal speech Eye Opening: Spontaneous Motor: Obeys Commands Verbal: Oriented GCS Score: 15 Results - Vitals Vitals: Vital Signs - 24 hr 06/28/21 06/28/21 06/28/21 06:32 08:36 10:10 Temperature 36.4 C L Heart Rate 63 72 75 Respiratory 18 14 11 L Rate Blood Pressure 104/71 132/78 H 136/74 H O2 Saturation 97 95 94 Oxygen O2 Source Room air - EKG (time done) 06:30 Rate: Rate (enter#) (60) Rhythm: NSR [place]: Normal Intervals: Normal LA QRS: Normal Ischemia: Normal ST segments. No: ST elevation c/w ischemia, ST depression - Labs Labs: Laboratory Tests 06/28/21 06/28/21 06/28/21 07:42 07:42 07:42 WBC 8.5 RBC 3.86 L Hgb 12.2 L Hct 35.1 L MCV 90.9 MCH 31.6 H MCHC 34.8 RDW 12.9 Plt Count 166 MPV 8.7 Neut # (Auto) 6.1 Lymph # (Auto) 1.6 [place] # (Auto) 0.6 Eos # (Auto) 0.2 Baso # (Auto) 0.0 Absolute Nucleated RBC 0.00 Nucleated RBC % 0.0 Sodium 136 Potassium 3.9 Chloride 101 Carbon Dioxide 25 Anion Gap 10.0 BUN 12 Creatinine 0.9 Estimated GFR (MDRD) 84 L Glucose 203 H Calcium 8.6 Magnesium 1.5 L Total Bilirubin 0.5 AST 18 ALT 20 Alkaline Phosphatase 75 Troponin I High Sens 9.4 B-Natriuretic Peptide Total Protein 6.4 L Albumin 3.4 Globulin 3.0 Albumin/Globulin Ratio 1.1 Lipase 35 Urine Color Urine Clarity Urine pH Ur Specific [place] Urine Protein Urine Glucose (UA) Urine Ketones Urine Occult Blood Urine Nitrite Urine Bilirubin Urine Urobilinogen Ur Leukocyte Esterase Urine RBC Urine WBC Ur Squamous Epith Cells Urine Bacteria Ur Microscopic Review Urine Culture Comments 06/28/21 06/28/21 07:42 09:19 WBC RBC Hgb Hct MCV MCH MCHC RDW Plt Count MPV Neut # (Auto) Lymph # (Auto) [place] # (Auto) Eos # (Auto) Baso # (Auto) Absolute Nucleated RBC Nucleated RBC % Sodium Potassium Chloride Carbon Dioxide Anion Gap BUN Creatinine Estimated GFR (MDRD) Glucose Calcium Magnesium Total Bilirubin AST ALT Alkaline Phosphatase Troponin I High Sens B-Natriuretic Peptide 95 Total Protein Albumin Globulin Albumin/Globulin Ratio Lipase Urine Color LIGHT YELLOW Urine Clarity CLEAR Urine pH 6.0 Ur Specific [place] 1.010 Urine Protein 30 H Urine Glucose (UA) 100 H Urine Ketones NEGATIVE Urine Occult Blood NEGATIVE Urine Nitrite NEGATIVE Urine Bilirubin NEGATIVE Urine Urobilinogen 0.2 (NORMAL) Ur Leukocyte Esterase NEGATIVE Urine RBC 0-5 Urine WBC 0-3 Ur Squamous Epith Cells NONE SEEN Urine Bacteria Rare Ur Microscopic Review INDICATED Urine Culture Comments NOT INDICATED - Rads (name of study) chest xray Radiology: Prelim report reviewed, See rad report (Mild interstitial changes which could be inflammatory or fluid vascular congestion.) PD MEDICAL DECISION MAKING - ED course Complexity details: reviewed results, re-evaluated patient (The patient states he has had a mild cough last couple of days. His chest x-ray shows some mild interstitial changes. Does not appear to be in CHF. Consider early viral syndrome.), considered differential (Unclear the cause of his lower blood pressure. He is not on medications to associate with it. Denies recent illness. Evaluated here for signs of infection or electrolyte problems and SC. Labs are normal. Blood pressure remains good here.), d/w patient Departure - Departure Disposition: Home, Self Care Clinical Impression: Transient hypotension, Lightheadedness Condition: Stable Record reviewed to determine appropriate education?: Yes Instructions: ED Near Syncope Unkn Follow-Up: DARION JOE DO [Primary Care Provider] - Comments: Stay well-hydrated. Your blood pressure has been transiently low but is seeming normal now with some fluid hydration. Consider the possibility of a viral illness starting given some mild cough that you have. We did do a Covid test and the results are pending. There are other viral illnesses going around 2 and these may be affecting your system. No signs of heart attack nor heart failure. No anemia nor electrolyte problems. It does not sound like you are still on any blood pressure medicines like your prior metoprolol and lisinopril. If you are then hold them for the next few days. Stay well-hydrated. Recheck if feeling worse over the next few days. Follow-up with your primary care. Discharge Date/Time: 06/28/21 11:54
[2021-06-28] MEDS ORDERED: SODIUM CHLORIDE 0.9% 1,000 ML IV STA (07:34)
[2021-06-28 07:48] LABS: BASOPHILS % (AUTO) 0.1 %; EOSINOPHILS # (AUTO) 0.2 10^3/uL (0.0-0.7); EOSINOPHILS % (AUTO) 2.3 %; HCT - HEMATOCRIT 35.1 % (42.0-52.0); HGB - HEMOGLOBIN 12.2 g/dL (14.0-18.0); LYMPHOCYTES # (AUTO) 1.6 10^3/uL (1.5-3.5); LYMPHOCYTES % (AUTO) 18.3 %; MEAN CORPUSCULAR HEMOGLOBIN 31.6 pg (27.0-31.0); MEAN CORPUSCULAR HGB CONC 34.8 g/dL (32.0-36.0); MEAN CORPUSCULAR VOLUME 90.9 fL (80.0-94.0); MEAN PLATELET VOLUME 8.7 fL (7.4-11.4); MONOCYTES # (AUTO) 0.6 10^3/uL (0.0-1.0); MONOCYTES % (AUTO) 7.2 %; NEUTROPHILS # (AUTO) 6.1 10^3/uL (1.5-6.6); NEUTROPHILS % (AUTO) 71.6 %; PLT - PLATELET COUNT 166 10^3/uL (130-450); RED BLOOD COUNT 3.86 10^6/uL (4.70-6.10); RED CELL DISTRIBUTION WIDTH 12.9 % (12.0-15.0); WHITE BLOOD COUNT 8.5 x10^3/uL (4.8-10.8)
[2021-06-28 08:02] LABS: ALBUMIN 3.4 g/dL (3.2-5.5); ALBUMIN/GLOBULIN RATIO 1.1 (1.0-2.2); BILIRUBIN,TOTAL 0.5 mg/dL (0.2-1.0); CALCIUM 8.6 mg/dL (8.5-10.3); CREATININE 0.9 mg/dL (0.6-1.2); MAGNESIUM 1.5 mg/dL (1.7-2.8); POTASSIUM 3.9 mmol/L (3.5-5.0); TOTAL PROTEIN 6.4 g/dL (6.7-8.2)
--- NOTE | 2021-06-28 08:08 | XRAY Report ---
PROCEDURE: Chest 1 View X-Ray INDICATIONS: chest pain TECHNIQUE: One view of the chest was acquired. COMPARISON: None FINDINGS: Surgical changes and devices: None. Lungs and pleura: No pleural effusions or pneumothorax. Diffuse interstitial changes most likely rep resent interstitial pulmonary edema. Mediastinum: Mediastinal contours appear normal. Heart size is normal. Bones and chest wall: No suspicious bony lesions. Overlying soft tissues appear unremarkable. IMPRESSION: Bilateral diffuse interstitial infiltrates most likely represent acute interstitial pulmonary edema. Reviewed by: Justen Sandoval MD on 06/28/2021 7:07 AM [facility] Approved by: Justen Sandoval MD on 06/28/2021 7:07 AM [facility] Station ID: [id number]
[2021-06-28 09:36] LABS: BILIRUBIN,URINE NEGATIVE (NEGATIVE); GLUCOSE, URINE (UA) 100 mg/dL (NEGATIVE); KETONES,URINE (UA) NEGATIVE (NEGATIVE); LEUKOCYTE ESTERASE, URINE NEGATIVE (NEGATIVE); NITRITE,URINE NEGATIVE (NEGATIVE); OCCULT BLOOD,URINE NEGATIVE (NEGATIVE); PROTEIN,URINE 30 mg/dL (NEGATIVE); UROBILINOGEN,URINE 0.2 (NORMAL) E.U./dL (NORMAL)
[2021-06-28 09:37] LABS: CLARITY,URINE CLEAR (CLEAR)
[2021-06-28 09:47] LABS: BACTERIA,URINE Rare /HPF (None Seen); RBC,URINE 0-5 /HPF (0-5); SQUAMOUS EPITHELIAL CELL,UR NONE SEEN (<= Few); WBC,URINE 0-3 /HPF (0-3)
[2021-06-28 10:10] VITALS: BP 136/74
== END 2021-06-28 11:54 | disposition home or self-care (01) ==
LOC: EDUNIT# → ED 06:25
DX: I95.89 Other hypotension (principal); I10 Essential (primary) hypertension; E11.9 Type 2 diabetes mellitus without complications; Z79.4 Long term (current) use of insulin
CPT/HCPCS: 36415; 71045; 80053; 81001; 83690; 83735; 83880; 84484; 85025; 93005; 96360; 96361; 99283; 99284; U0004; 81003; 87086

== ENCOUNTER 2021-11-03 20:46 | Outpatient (CLI) | payer MEDICARE, MEDICAID | END 2021-11-03 20:47 | disposition short-term general hospital (02) | LOC: EMS 20:46 | DX: R41.0 Disorientation, unspecified (principal); R53.1 Weakness; R05.9 Cough, unspecified; R09.89 Other specified symptoms and signs involving the circulatory and respiratory systems | CPT/HCPCS: A0425; A0427 ==

== ENCOUNTER 2021-11-18 11:45 | Outpatient (CLI) | payer MEDICARE, MEDICAID | END 2021-11-18 11:46 | disposition left against medical advice (07) | LOC: EMS 11:45 | DX: R40.0 Somnolence (principal) ==

== ENCOUNTER 2022-01-07 16:14 | Outpatient (CLI) | payer MEDICARE, MEDICAID | END 2022-01-07 16:15 | disposition EMS.NT | LOC: EMS 16:14 | DX: Z03.89 Encounter for observation for other suspected diseases and conditions ruled out (principal) ==

== ENCOUNTER 2022-01-16 19:00 | Outpatient (CLI) | payer MEDICARE, MEDICAID | END 2022-01-16 19:01 | disposition left against medical advice (07) | LOC: EMS 19:00 | DX: E11.65 Type 2 diabetes mellitus with hyperglycemia (principal); Z79.4 Long term (current) use of insulin; R53.83 Other fatigue ==

== ENCOUNTER 2022-04-20 02:56 | Outpatient (CLI) | payer MEDICARE, MEDICAID | END 2022-04-20 02:57 | disposition left against medical advice (07) | LOC: EMS 02:56 | DX: R42 Dizziness and giddiness (principal) ==

== ENCOUNTER 2022-06-03 11:20 | Outpatient (CLI) | payer OTHER | END 2022-06-03 11:21 | disposition short-term general hospital (02) | LOC: EMS 11:20 | DX: R07.9 Chest pain, unspecified (principal) | CPT/HCPCS: A0425; A0427 ==

== ENCOUNTER 2022-08-24 04:50 | Outpatient (CLI) | payer MEDICARE, MEDICAID | END 2022-08-24 04:51 | disposition left against medical advice (07) | LOC: EMS 04:50 | DX: E11.649 Type 2 diabetes mellitus with hypoglycemia without coma (principal); Z79.4 Long term (current) use of insulin ==

== ENCOUNTER 2022-09-29 03:19 | Outpatient (CLI) | payer MEDICARE, MEDICAID | END 2022-09-29 03:20 | disposition short-term general hospital (02) | LOC: EMS 03:19 | DX: R51.9 Headache, unspecified (principal); W01.198A Fall on same level from slipping, tripping and stumbling with subsequent striking against other object, initial encounter; Y92.000 Kitchen of unspecified non-institutional (private) residence as the place of occurrence of the external cause; Z79.01 Long term (current) use of anticoagulants; F10.90 Alcohol use, unspecified, uncomplicated | CPT/HCPCS: A0425; A0429; A0888 ==

== ENCOUNTER 2022-11-16 03:23 | Outpatient (CLI) | payer MEDICARE, MEDICAID | END 2022-11-16 23:59 | disposition EMS.NT | LOC: EMS 03:23 | DX: Z03.89 Encounter for observation for other suspected diseases and conditions ruled out (principal) ==

== ENCOUNTER 2023-08-01 17:37 | Outpatient (CLI) | payer MEDICARE, MEDICAID | END 2023-08-01 23:59 | disposition short-term general hospital (02) | LOC: EMS 17:37 | PROVIDERS: ATTEND Emergency Medicine | DX: M25.552 Pain in left hip (principal) | CPT/HCPCS: A0425; A0427; A0888 ==

== ENCOUNTER 2023-08-23 20:00 | Outpatient (CLI) | payer MEDICARE, MEDICAID | END 2023-08-23 23:59 | disposition EMS.NT | LOC: EMS 20:00 | DX: M25.522 Pain in left elbow (principal); W18.39XA Other fall on same level, initial encounter; Y92.009 Unspecified place in unspecified non-institutional (private) residence as the place of occurrence of the external cause ==

== ENCOUNTER 2023-08-29 16:28 | Outpatient (CLI) | payer MEDICARE, MEDICAID | END 2023-08-29 23:59 | disposition short-term general hospital (02) | LOC: EMS 16:28 | DX: R07.9 Chest pain, unspecified (principal) | CPT/HCPCS: A0425; A0429; A0888 ==

== ENCOUNTER 2023-09-03 03:51 | Outpatient (CLI) | payer MEDICARE, MEDICAID | END 2023-09-03 23:59 | disposition EMS.NT | LOC: EMS 03:51 | DX: Z03.89 Encounter for observation for other suspected diseases and conditions ruled out (principal) ==

== ENCOUNTER 2023-09-04 04:07 | Outpatient (CLI) | payer MEDICARE, MEDICAID | END 2023-09-04 23:59 | disposition EMS.NT | LOC: EMS 04:07 | DX: Z03.89 Encounter for observation for other suspected diseases and conditions ruled out (principal) ==

== ENCOUNTER 2023-09-04 17:16 | Outpatient (CLI) | payer MEDICARE, MEDICAID | END 2023-09-04 23:59 | disposition short-term general hospital (02) | LOC: EMS 17:16 | DX: S00.03XA Contusion of scalp, initial encounter (principal); M54.6 Pain in thoracic spine; W05.0XXA Fall from non-moving wheelchair, initial encounter; Y92.480 Sidewalk as the place of occurrence of the external cause | CPT/HCPCS: A0425; A0429; A0888 ==

== ENCOUNTER 2023-09-08 22:58 | Outpatient (CLI) | payer MEDICARE, MEDICAID | END 2023-09-08 23:59 | disposition EMS.NT | LOC: EMS 22:58 | DX: Z03.89 Encounter for observation for other suspected diseases and conditions ruled out (principal) ==

== ENCOUNTER → 2023-09-08 | Outpatient (CLI) | payer MEDICARE, MEDICAID | END | disposition EMS.NT | LOC: EMS 23:59 | DX: Z03.89 Encounter for observation for other suspected diseases and conditions ruled out (principal) ==

== ENCOUNTER 2023-09-10 03:17 | Outpatient (CLI) | payer MEDICARE, MEDICAID | END 2023-09-10 23:44 | disposition EMS.NT | LOC: EMS 03:17 | DX: Z03.89 Encounter for observation for other suspected diseases and conditions ruled out (principal) ==

== ENCOUNTER 2023-09-10 16:31 | Outpatient (CLI) | payer MEDICARE, MEDICAID | END 2023-09-10 23:59 | disposition EMS.NT | LOC: EMS 16:31 | DX: Z03.89 Encounter for observation for other suspected diseases and conditions ruled out (principal); Z79.01 Long term (current) use of anticoagulants ==

== ENCOUNTER 2023-09-12 23:49 | Outpatient (CLI) | payer MEDICARE, MEDICAID | END 2023-09-12 23:50 | disposition EMS.NT | LOC: EMS 23:49 | DX: Z03.89 Encounter for observation for other suspected diseases and conditions ruled out (principal) ==

== ENCOUNTER 2023-09-18 11:14 | Outpatient (CLI) | payer MEDICARE, MEDICAID | END 2023-09-18 23:59 | disposition EMS.NT | LOC: EMS 11:14 | DX: Z03.89 Encounter for observation for other suspected diseases and conditions ruled out (principal) ==

== ENCOUNTER 2023-09-20 04:45 | Outpatient (CLI) | payer MEDICARE, MEDICAID | END 2023-09-20 23:59 | disposition EMS.NT | LOC: EMS 04:45 | DX: M54.9 Dorsalgia, unspecified (principal); W07.XXXA Fall from chair, initial encounter; Y92.009 Unspecified place in unspecified non-institutional (private) residence as the place of occurrence of the external cause ==

== ENCOUNTER 2023-09-20 12:41 | Outpatient (CLI) | payer MEDICARE, MEDICAID | END 2023-09-20 23:59 | disposition EMS.NT | LOC: EMS 12:41 | DX: Z03.89 Encounter for observation for other suspected diseases and conditions ruled out (principal) ==

== ENCOUNTER 2023-09-21 22:26 | Outpatient (CLI) | payer MEDICARE, MEDICAID | END 2023-09-21 22:27 | disposition short-term general hospital (02) | LOC: EMS 22:26 | DX: S00.12XA Contusion of left eyelid and periocular area, initial encounter (principal); M54.9 Dorsalgia, unspecified; W18.11XA Fall from or off toilet without subsequent striking against object, initial encounter; Y92.002 Bathroom of unspecified non-institutional (private) residence as the place of occurrence of the external cause | CPT/HCPCS: A0425; A0429; A0888 ==

== ENCOUNTER 2023-09-23 17:01 | Outpatient (CLI) | payer MEDICARE, MEDICAID | END 2023-09-23 23:59 | disposition short-term general hospital (02) | LOC: EMS 17:01 | DX: S00.03XA Contusion of scalp, initial encounter (principal); W18.39XA Other fall on same level, initial encounter; Y92.030 Kitchen in apartment as the place of occurrence of the external cause | CPT/HCPCS: A0425; A0429; A0888 ==

== ENCOUNTER 2023-11-19 00:55 | Outpatient (CLI) | payer MEDICARE, MEDICAID | END 2023-11-19 23:59 | disposition EMS.NT | LOC: EMS 00:55 | DX: M25.512 Pain in left shoulder (principal); W05.0XXA Fall from non-moving wheelchair, initial encounter ==

== ENCOUNTER 2023-11-19 06:17 | Outpatient (CLI) | payer MEDICARE, MEDICAID | END 2023-11-19 23:59 | disposition short-term general hospital (02) | LOC: EMS 06:17 | DX: M25.512 Pain in left shoulder (principal); S49.92XA Unspecified injury of left shoulder and upper arm, initial encounter; W05.0XXA Fall from non-moving wheelchair, initial encounter | CPT/HCPCS: A0425; A0429; A0888 ==